=== PATIENT | female | born 1955 | race Caucasian/White ===

== ENCOUNTER 2018-03-19 17:05 | Observation (INO) | payer MEDICARE, OTHER ==
[~2018-03-19] VITALS: Ht 165.1 cm; Wt 98.6 kg
[2018-03-19] MEDS ORDERED: OMEPRAZOLE40 MG PO (17:26)
[2018-03-19] MEDS ORDERED: GABAPENTIN100 MG PO (17:26)
[2018-03-19] MEDS ORDERED: FENOFIBRATE145 MG PO (17:26)
[2018-03-19] MEDS ORDERED: METOPROLOL SUCC50 MG PO (17:26)
[2018-03-19] MEDS ORDERED: VITAMIN D250000 UNIT PO (17:26)
[2018-03-19] MEDS ORDERED: LEVOTHYROXINE50 MCG PO (17:26)
[2018-03-19] MEDS ORDERED: FLUTICASONE PRO16 GM INH (17:26)
[2018-03-19] MEDS ORDERED: SODIUM CHLORIDE 0.9% 1000ML 1,000 ML IV STA (17:42)
[2018-03-19] MEDS ORDERED: PIPER-TAZ 3.375 GM 50 ML IV STA (17:42)
[2018-03-19] MEDS ORDERED: ACETAMINOPHEN 325 MG TAB PO ONE (17:45)
[2018-03-19 18:02] LABS: BASOPHILS % 0.7 % (0.0-1.0); HEMATOCRIT 37.2 % (34.2-44.1); LYMPHOCYTES # (AUTO) 1.2 (1.0-3.2); LYMPHOCYTES % 30.2 % (18.0-39.1); MEAN CORPUSCULAR HEMOGLOBIN 27.8 pg (28-32); MEAN CORPUSCULAR HGB CONC 32.3 g/dL (31-35); MEAN CORPUSCULAR VOLUME 86.1 fL (81-99); MONOCYTES # (AUTO) 0.4 (0.2-0.8); MONOCYTES % 10.6 % (4.4-11.3); NEUTROPHILS # (AUTO) 2.3 (2.1-6.9); PLATELET COUNT 208 x10e3/uL (140-360); RED BLOOD COUNT 4.32 x10e6/uL (3.6-5.1); RED CELL DISTRIBUTION WIDTH 14.3 % (11.7-14.4)
--- NOTE | 2018-03-19 18:11 | Diagnostic Imaging Report ---
PROCEDURE: A single AP view of the chest. COMPARISON: None. INDICATIONS: CONTINUOS COUGHING, CONGESTION, SHORTNESS OF BREATH FINDINGS: Lines/tubes: None. Lungs: Limited by body habitus and mild rotation. Pulmonary vascular congestion and mild interstitial edema. Underlying pneumonia, especially in the right lower lung field cannot be excluded. Pleura: There is no pleural effusion or pneumothorax. Heart and mediastinum: Cardiomediastinal silhouette is enlarged, accentuated by rotation and AP technique. Bones: No acute bony abnormality. IMPRESSION: Pulmonary vascular congestion and mild interstitial edema. Underlying pneumonia, especially in the right lower lung field cannot be excluded. Dictated by: Ming Velez M.D. on 03/19/2018 at 18:13 Electronically approved by: Ming Velez M.D. on 03/19/2018 at 18:13
[2018-03-19 18:14] LABS: ALANINE AMINOTRANSFERASE 32 IU/L (0-55); ALBUMIN 3.4 g/dL (3.5-5.0); ALBUMIN/GLOBULIN RATIO 0.8 (0.8-2.0); ALKALINE PHOSPHATASE 59 IU/L (40-150); ANION GAP 12.6 mmol/L (8-16); BLOOD UREA NITROGEN 16 mg/dL (7-26); BUN/CREATININE RATIO 18 (6-25); CALCIUM 9.4 mg/dL (8.4-10.2); CARBON DIOXIDE 21 mmol/L (22-29); CHLORIDE 109 mmol/L (98-107); CREATINE KINASE 304 IU/L (29-168); CREATININE, SERUM 0.89 mg/dL (0.57-1.11); EST GLOMERULAR FILTRATION RATE > 60 ML/MIN (60-); GLUCOSE 108 mg/dL (74-118); POTASSIUM 3.6 mmol/L (3.5-5.1); SODIUM 139 mmol/L (136-145)
[2018-03-19 18:40] LABS: BILIRUBIN,URINE NEGATIVE (NEGATIVE); CLARITY,URINE CLEAR (CLEAR); COLOR,URINE YELLOW (YELLOW); KETONES,URINE NEGATIVE (NEGATIVE); LEUKOCYTE ESTERASE ,URINE NEGATIVE (NEGATIVE); NITRITE,URINE NEGATIVE (NEGATIVE); PROTEIN,URINE DIPSTICK TRACE (NEGATIVE); URINE UROBILINOGEN 0.2 mg/dL (0.2 - 1)
[2018-03-19] MEDS ORDERED: ALBUTEROL SULF 0.083% NEB SOLN 3 ML NEB NEB STA (18:46)
[2018-03-19] MEDS ORDERED: ACETAMINOPHEN 325 MG TAB PO PRN (19:00)
[2018-03-19] MEDS ORDERED: ASPIRIN 81 MG CHEW TAB PO ONE (19:00)
[2018-03-19] MEDS: ALBUTEROL SULF 0.083% NEB SOLN 3 ML NEB NEB SCH (19:00)
[2018-03-19 19:01] LABS: EPITHELIAL CELLS,URINE RARE /LPF; MUCUS,URINE FEW (RARE)
[2018-03-19] MEDS: IPRATROPIUM BROMIDE 0.02% 2.5 ML NEB NEB SCH (20:00)
--- OUTSIDE RECORDS SUMMARY | 2018-03-19 20:50 | XMS REPORT ---
Author Author [facility] Address Unknown Phone Unavailable Care Team Providers Care Relay Tester Name Role Phone ARLENE WALDRON Unavailable Unavailable Problems This patient has no known problems. Allergies, Adverse Reactions, Alerts This patient has no known allergies or adverse reactions. Medications This patient has no known medications. Results Test Description Test Time Test Comments Text Results Atomic Results Result Comments CHEST SINGLE (PORTABLE) [address] [address] Patient Name: PRIMO COOK MR #: [id number] : 1955 Age/Sex: 62/F Req #: [id number] Adm Physician: Ordered by: ARLENE WALDRON MD Report #: [id number] Location: ER Room/Bed: Procedure: [id number] DX/CHEST SINGLE (PORTABLE) Exam Date: 03/19/18 Exam Time: 1753 REPORT STATUS: Signed PROCEDURE: A single AP view of the chest. COMPARISON: None. INDICATIONS: CONTINUOS COUGHING, CONGESTION, SHORTNESS OF BREATH FINDINGS: Lines/tubes: None. Lungs: Limited by body habitus and mild rotation. Pulmonary vascular congestion and mild interstitial edema. Underlying pneumonia, especially in the right lower lung field cannot be excluded. Pleura: There is no pleural effusion or pneumothorax. Heart and mediastinum: Cardiomediastinal silhouette is enlarged, accentuated by rotation and AP technique. Bones: No acute bony abnormality. IMPRESSION: Pulmonary vascular congestion and mild interstitial edema. Underlying pneumonia, especially in the right lower lung field cannot be excluded. Dictated by: Ming Larson M.D. on 03/19/2018 at 18:13 Electronically approved by: Ming Larson M.D. on 03/19/2018 at 18:13 Dictated By: MING LARSON MD 12 COPY TO: ARLENE WALDRON MD
[2018-03-19 23:40] VITALS: BP 165/93
[2018-03-20] VITALS (8 sets, daily range): BP systolic 139–186; BP diastolic 67–93
[2018-03-20] MEDS: ALBUTEROL SULF 0.083% NEB SOLN 3 ML NEB NEB SCH ×3 (00:30→07:15)
[2018-03-20] MEDS: IPRATROPIUM BROMIDE 0.02% 2.5 ML NEB NEB SCH ×2 (00:30→07:15)
[2018-03-20] MEDS: SODIUM CHLORIDE 0.9% 1000ML 1,000 ML IV SCH ×2 (02:35→09:24)
[2018-03-20] MEDS: PIPER-TAZ 3.375 GM 100 ML IV SCH ×2 (02:35→09:24)
[2018-03-20 06:56] LABS: BASOPHILS % 0.3 % (0.0-1.0); EOSINOPHILS % 0.3 % (0.0-6.0); HEMATOCRIT 33.5 % (34.2-44.1); HEMOGLOBIN 10.8 g/dL (12.0-16.0); LYMPHOCYTES # (AUTO) 1.5 (1.0-3.2); MEAN CORPUSCULAR HEMOGLOBIN 27.8 pg (28-32); MEAN CORPUSCULAR HGB CONC 32.2 g/dL (31-35); MEAN CORPUSCULAR VOLUME 86.3 fL (81-99); MONOCYTES # (AUTO) 0.4 (0.2-0.8); MONOCYTES % 9.7 % (4.4-11.3); NEUTROPHILS # (AUTO) 1.8 (2.1-6.9); NEUTROPHILS % 49.2 % (38.7-80.0); PLATELET COUNT 217 x10e3/uL (140-360); RED BLOOD COUNT 3.88 x10e6/uL (3.6-5.1); RED CELL DISTRIBUTION WIDTH 14.4 % (11.7-14.4)
[2018-03-20 07:30] LABS: ALANINE AMINOTRANSFERASE 26 IU/L (0-55); ALBUMIN/GLOBULIN RATIO 0.8 (0.8-2.0); ALKALINE PHOSPHATASE 50 IU/L (40-150); ANION GAP 12.6 mmol/L (8-16); BLOOD UREA NITROGEN 16 mg/dL (7-26); BUN/CREATININE RATIO 20 (6-25); CALCIUM 8.8 mg/dL (8.4-10.2); CARBON DIOXIDE 22 mmol/L (22-29); CHLORIDE 112 mmol/L (98-107); CREATINE KINASE 444 IU/L (29-168); CREATININE, SERUM 0.82 mg/dL (0.57-1.11); EST GLOMERULAR FILTRATION RATE > 60 ML/MIN (60-); GLUCOSE 100 mg/dL (74-118); POTASSIUM 3.6 mmol/L (3.5-5.1); SODIUM 143 mmol/L (136-145)
[2018-03-20 09:23] LABS: EOSINOPHILS % (MANUAL) 1 % (0-7); LYMPHOCYTES % (MANUAL) 40 % (19-48); MONOCYTES % (MANUAL) 8 % (3.4-9.0); NEUTROPHILS % (MANUAL) 48 % (40-74)
[2018-03-20 09:24] LABS: ANISOCYTOSIS SLIGHT; PLATELET ESTIMATE ADEQUATE; PLATELET MORPHOLOGY COMMENT NORMAL; RBC MORPHOLOGY COMMENT NORMAL
[2018-03-20] MEDS ORDERED: METHYLPREDNISOLONE SOD SUCC 40 MG/ML VIAL IV ONE (10:15)
[2018-03-20] MEDS ORDERED: HYDRALAZINE HCL 20 MG/ML VIAL IV PRN (10:30)
--- NOTE | 2018-03-20 11:14 | Diagnostic Imaging Report ---
PROCEDURE:CHEST SINGLE (PORTABLE) TECHNIQUE:Portable AP chest INDICATION:Cough COMPARISON:Patients [facility], , CHEST SINGLE (PORTABLE), 03/19/2018, 17:59. FINDINGS: Bilateral reticular opacity with focal airspace opacity in the right lower lobe. Mild prominent cardiac silhouette and central vasculature. No sizable pleural effusion. Intact skeleton. CONCLUSION: 1. Progressive right lower lobe airspace opacity suggesting evolving pneumonia. No cavitation. 2. Central vascular congestion with mild interstitial edema. Dictated by: Lázaro Tripp M.D. on 03/20/2018 at 11:16 Electronically approved by: Lázaro Tripp M.D. on 03/20/2018 at 11:16
[2018-03-20] MEDS: ALBUTEROL/IPRATROPIUM 3 ML NEB NEB SCH ×3 (11:20→19:45)
[2018-03-20] MEDS: CEFTRIAXONE SOD 1 GM VIAL IV SCH (11:40)
[2018-03-20] MEDS: AZITHROMYCIN 500MG/NS 250 ML 250 ML IV SCH (11:40)
[2018-03-20 16:13] LABS: CREATINE KINASE 480 IU/L (29-168)
[2018-03-20] MEDS: OXYMETAZOLINE HCL 0.05% NAS 1 SPRAY BTL SCH (20:44)
[2018-03-20] MEDS: ENOXAPARIN SOD INJ 40 MG/0.4 ML SYR SC SCH (20:44)
[2018-03-21] VITALS (7 sets, daily range): BP systolic 119–176; BP diastolic 63–87
[2018-03-21 06:57] LABS: BASOPHILS % 0.5 % (0.0-1.0); EOSINOPHILS % 0.2 % (0.0-6.0); HEMATOCRIT 34.7 % (34.2-44.1); HEMOGLOBIN 10.9 g/dL (12.0-16.0); LYMPHOCYTES # (AUTO) 2.7 (1.0-3.2); LYMPHOCYTES % 48.3 % (18.0-39.1); MEAN CORPUSCULAR HEMOGLOBIN 27.1 pg (28-32); MEAN CORPUSCULAR HGB CONC 31.4 g/dL (31-35); MEAN CORPUSCULAR VOLUME 86.3 fL (81-99); MONOCYTES # (AUTO) 0.4 (0.2-0.8); MONOCYTES % 7.2 % (4.4-11.3); NEUTROPHILS # (AUTO) 2.4 (2.1-6.9); NEUTROPHILS % 43.6 % (38.7-80.0); PLATELET COUNT 224 x10e3/uL (140-360); RED BLOOD COUNT 4.02 x10e6/uL (3.6-5.1); RED CELL DISTRIBUTION WIDTH 14.4 % (11.7-14.4)
[2018-03-21] MEDS: ALBUTEROL/IPRATROPIUM 3 ML NEB NEB SCH ×4 (07:05→20:10)
[2018-03-21 07:20] LABS: ANION GAP 12.3 mmol/L (8-16); BLOOD UREA NITROGEN 13 mg/dL (7-26); BUN/CREATININE RATIO 16 (6-25); CALCIUM 9.5 mg/dL (8.4-10.2); CARBON DIOXIDE 25 mmol/L (22-29); CHLORIDE 111 mmol/L (98-107); CREATINE KINASE 439 IU/L (29-168); CREATININE, SERUM 0.81 mg/dL (0.57-1.11); EST GLOMERULAR FILTRATION RATE > 60 ML/MIN (60-); GLUCOSE 92 mg/dL (74-118); POTASSIUM 3.3 mmol/L (3.5-5.1); SODIUM 145 mmol/L (136-145)
[2018-03-21 07:25] LABS: THYROID STIMULATING HORMONE 0.903 uIU/mL (0.350-4.940)
[2018-03-21] MEDS: OXYMETAZOLINE HCL 0.05% NAS 1 SPRAY BTL SCH ×2 (08:16→21:30)
[2018-03-21] MEDS ORDERED: POTASSIUM CHLORIDE 20 MEQ TAB CR PO ONE (08:40)
[2018-03-21] MEDS: AZITHROMYCIN 500MG/NS 250 ML 250 ML IV SCH (11:11)
[2018-03-21] MEDS: ISOSORBIDE MONONITRATE 30 MG TAB CR PO SCH (11:11)
[2018-03-21] MEDS: CEFTRIAXONE SOD 1 GM VIAL IV SCH (11:11)
[2018-03-21] MEDS: BENZONATATE 100 MG CAP PO PRN ×3 (11:41→21:41)
[2018-03-21] MEDS: ENOXAPARIN SOD INJ 40 MG/0.4 ML SYR SC SCH (16:50)
[2018-03-22] VITALS: BP 125/60
[2018-03-22 04:00] VITALS: BP 145/71
[2018-03-22] MEDS ORDERED: LEVOTHYROXINE SODIUM 25 MCG TABLET PO SCH (06:00)
[2018-03-22 07:48] VITALS: BP 170/87
[2018-03-22] MEDS: ALBUTEROL/IPRATROPIUM 3 ML NEB NEB SCH (09:00)
[2018-03-22] MEDS ORDERED: METOPROLOL SUCCINATE 50 MG TAB XL PO SCH (09:00)
--- NOTE | 2018-03-22 09:22 | Discharge Summary ---
PRIMARY CARE DOCTOR: Dr. Rivera Lopez with [facility]. FINAL DIAGNOSIS: Community-acquired pneumonia. SECONDARY DIAGNOSES 1. Uncontrolled hypertension. 2. Mild rhabdomyolysis, getting better. CONSULTANTS: None. PROCEDURES/STUDIES PERFORMED: None. HISTORY: Per [facility] P. HOSPITAL COURSE: The patient was admitted. The patient was put on IV Rocephin and azithromycin. She also got some nebulizer treatments given that she had some wheezes. She also got a dose of steroids. On the day of discharge, the patient was finally feeling better. She will go home on oral Levaquin for 3 more days. She will follow up with Dr. Lopez next week. She also is getting some Tessalon Perles as needed. The patient had uncontrolled hypertension because I had to hold her beta ayaan given her wheeze. Now, her wheeze is better and we can resume her beta ayaan. The patient is allergic to calcium channel ayaan and SIDHDARTH inhibitor as well. The patient was seen and examined today. CONDITION ON DISCHARGE: Stable. DISCHARGE MEDICATIONS: Please see medication reconciliation form. DANETTE FRAGOSO M.D. Job#: [id number] RI cc:RIVERA LOPEZ MD
[2018-03-22] MEDS ORDERED: LEVAQUIN500 MG PO (09:42)
[2018-03-22] MEDS ORDERED: TESSALON PERLE100 MG PO (09:42)
[2018-03-22] MEDS: ISOSORBIDE MONONITRATE 30 MG TAB CR PO SCH (10:00)
== END 2018-03-22 10:17 | disposition home or self-care (01) ==
LOC: ER 17:05 → ERHOLD 18:59 → IMCU 22:33
PROVIDERS: ADMIT Internal Medicine; ATTEND Internal Medicine
DX: J15.9 Unspecified bacterial pneumonia (principal); I10 Essential (primary) hypertension; K21.9 Gastro-esophageal reflux disease without esophagitis; E04.9 Nontoxic goiter, unspecified; M62.82 Rhabdomyolysis; K52.1 Toxic gastroenteritis and colitis; T36.0X5A Adverse effect of penicillins, initial encounter; Y92.230 Patient room in hospital as the place of occurrence of the external cause
CPT/HCPCS: 36415 ×3; 71045 ×2; 80048; 80053 ×2; 81001; 82550 ×3; 82553 ×2; 83605; 84443; 84484 ×2; 85025 ×3; 87040; 87086; 87400; 87493; 93005; 94640 ×6; 96367; 99284; G0378 ×4; J0456 ×2; J0696 ×2; J1650 ×2; J2543 ×2; J2920; J7030 ×2